=== PATIENT | male | born 1960 | race Caucasian/White ===

== ENCOUNTER → 2017-12-24 | Outpatient (CLI) | payer OTHER ==
[~2017-12-24] MED LIST: CITALOPRAM HBR10 MG; HYDROCODONE; LEXAPRO10 MG PO; NAPROXEN500 MG; PANTOPRAZOLE SO40 MG PO
--- NOTE | 2017-12-24 11:57 | Diagnostic Imaging Report ---
EXAMINATION: Scrotal ultrasound CLINICAL INDICATION: Hydrocele. COMPARISON: None. TECHNIQUE: Grayscale and color Doppler evaluation of the scrotum was performed in transverse and longitudinal planes. FINDINGS: The right testicle measures 4.6 x 2.7 x 3.4 cm . No intratesticular mass or calcification.. The right epididymis measures 1.4 x 0.6 x 0.8 cm. No nodules or masses.. Moderate hydrocele. No varicocele. There is normal flow to the right testicle, without evidence of torsion. The left testicle measures 4.8 x 2.6 x 3.2 cm. No intratesticular mass or calcification.. The left epididymis measures 1.1 x 0.6 x 1.0 cm. 0.5 cm anechoic lesion in the left epididymal head compatible with a cyst or spermatocele. Small hydrocele. No varicocele. There is normal flow to the left testicle without evidence of torsion. The scrotum has a normal appearance, without focal lesions. Impression: Unremarkable sonographic appearance of the testes. Bilateral hydroceles right larger than left. Small left epididymal head cyst versus spermatocele. Signed by: Dr. Lenny Ratliff M.D. on 12/24/2017 11:54 AM
== END ==
LOC: US 10:32
PROVIDERS: ATTEND Urology
DX: N43.3 Hydrocele, unspecified (principal)
CPT/HCPCS: 76870; 93976